=== PATIENT | female | born 1955 | race American Indian/Alaskan Native ===

== ENCOUNTER 2019-10-03 17:10 | Emergency (ER) | payer MEDICAID ==
[~2019-10-03] VITALS: Ht 152.4 cm; Wt 45.0 kg
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
--- NOTE | 2019-10-03 17:41 | NUR ---
assisting RN with pt care, pt is calm and cooperative, gave pt water, cyndi well, no n/v, pt aware UA needed, said she doesn't to live with family anymore "they are too controlling", pt is from [facility]
[2019-10-03 18:17] LABS: BASOPHILS % (AUTO) 0.5 % (0-1); EOSINOPHILS # (AUTO) 0.2 X10'3 (0-0.9); EOSINOPHILS % (AUTO) 3.8 % (0-6); HEMATOCRIT 36.2 % (35.0-45.0); HEMOGLOBIN 11.7 g/dl (12.0-16.0); LYMPHOCYTES % (AUTO) 37.2 % (21-51); MEAN CORPUSCULAR HEMOGLOBIN 29.1 PG (27.0-31.0); MEAN CORPUSCULAR HGB CONC 32.3 g/dL (33.0-36.5); MEAN CORPUSCULAR VOLUME 90.1 FL (78-98); MEAN PLATELET VOLUME 8.2 FL (7.4-10.4); MONOCYTES # (AUTO) 0.5 X10'3 (0-0.9); MONOCYTES % (AUTO) 8.5 % (2-12); NEUTROPHILS # (AUTO) 2.7 X10'3 (1.8-7.7); PLATELET COUNT 266 X10'3 (140-440); RED BLOOD COUNT 4.02 X10'6 (4.20-5.60); RED CELL DISTRIBUTION WIDTH 14.7 % (11.5-14.5); WHITE BLOOD COUNT 5.4 X10'3 (4.5-11.0)
[2019-10-03 18:22] LABS: CLARITY,URINE CLEAR (Clear); COLOR,URINE YELLOW (Yellow); GLUCOSE, URINE NEGATIVE (Neg); KETONES,URINE NEGATIVE (Neg); LEUKOCYTE ESTERASE ,URINE NEGATIVE (Neg); NITRITES, URINE POSITIVE (Neg); OCCULT BLOOD,URINE NEGATIVE (Neg); PH,URINE 5.5 (4.8-8.0); PROTEIN,URINE NEGATIVE (Neg); UROBILINOGEN,URINE 0.2 E.U/dL (0.2-1.0)
[2019-10-03 18:23] LABS: UA COLLECTION TYPE NON-SPECIFIED
[2019-10-03 18:26] LABS: URINE AMPHETAMINE SCREEN NEGATIVE (Neg); URINE BARBITUATE SCREEN NEGATIVE (Neg); URINE BENZODIAZEPINES SCREEN NEGATIVE (Neg); URINE CANNABINOID SCREEN POSITIVE (Neg); URINE COCAINE SCREEN NEGATIVE (Neg); URINE METHADONE SCREEN NEGATIVE (Neg); URINE OPIATE SCREEN NEGATIVE (Neg); URINE PHENCYCLIDINE SCREEN NEGATIVE (Neg)
[2019-10-03 18:26] LABS: ALANINE AMINOTRANSFERASE 66 U/L (12-78); ALBUMIN 3.7 G/DL (3.4-5.0); ALBUMIN/GLOBULIN RATIO 0.7 (1.1-1.5); ALKALINE PHOSPHATASE 144 IU/L (46-116); ANION GAP 9 (8-16); ASPARTATE AMINO TRANSFERASE 42 U/L (10-37); BILIRUBIN,TOTAL 0.4 MG/DL (0.1-1.0); BLOOD UREA NITROGEN 28 MG/DL (7-18); BUN/CREATININE RATIO 31.1 (6.6-38.0); CALCIUM 9.3 MG/DL (8.5-10.1); CHLORIDE 110 MMOL/L (99-107); ETHANOL < 0.010 GM/DL (0.0-0.010); POTASSIUM 4.3 MMOL/L (3.5-5.1); SODIUM 147 MMOL/L (135-145); TOTAL CARBON DIOXIDE 28.1 MMOL/L (24-32); eGFR 64 ML/MIN
[2019-10-03 18:28] LABS: GLUCOSE 88 MG/DL (70-104)
[2019-10-03 18:42] LABS: BACTERIA,URINE 3+ /HPF (Neg); RBC,URINE NONE SEEN /HPF (0-2); SQUAMOUS EPITHELIAL CELL,UR FEW /LPF (FEW)
--- NOTE | 2019-10-03 19:00 | NUR ---
Pt eating dinner, late tray provided.
[2019-10-03] MEDS ORDERED: NO HOME MEDS (19:45)
--- NOTE | 2019-10-03 19:45 | NUR ---
Per pt, she is currently on no home meds. She "used to take" prozac for depression, "something for sleep", and "something for high anxiety". No current meds on external med history.
--- NOTE | 2019-10-03 21:23 | NUR ---
Pt resting in bed, respirations normal, no s/s of distress.
[2019-10-03 22:58] VITALS: BP 113/68
== END 2019-10-03 23:02 | disposition home or self-care (01) ==
LOC: ER 17:10
DX: F31.9 Bipolar disorder, unspecified (principal)
CPT/HCPCS: 36415; 80053; 80305; 80320; 81001; 85025; 99285

== ENCOUNTER 2021-06-05 11:00 | Emergency (ER) | payer MEDICAID ==
[~2021-06-05] VITALS: Ht 149.9 cm; Wt 41.0 kg
[~2021-06-05 11:00] MED LIST: NO HOME MEDS
[2021-06-05 12:16] LABS: EOSINOPHILS # (AUTO) 0.4 X10'3 (0-0.9); MONOCYTES # (AUTO) 0.4 X10'3 (0-0.9)
[2021-06-05 12:17] LABS: BASOPHILS % (AUTO) 0.6 % (0-1); EOSINOPHILS % (AUTO) 6.6 % (0-6); HEMATOCRIT 36.2 % (35.0-45.0); HEMOGLOBIN 12.3 g/dl (12.0-16.0); LYMPHOCYTES # (AUTO) 2.7 X10'3 (1.1-4.8); LYMPHOCYTES % (AUTO) 48.3 % (21-51); MEAN CORPUSCULAR HEMOGLOBIN 30.3 PG (27.0-31.0); MEAN CORPUSCULAR VOLUME 88.9 FL (78-98); MONOCYTES % (AUTO) 7.9 % (2-12); NEUTROPHILS % (AUTO) 36.6 % (42-75); PLATELET COUNT 224 X10'3 (140-440); RED BLOOD COUNT 4.08 X10'6 (4.20-5.60); RED CELL DISTRIBUTION WIDTH 13.9 % (11.5-14.5); WHITE BLOOD COUNT 5.5 X10'3 (4.5-11.0)
[2021-06-05 12:57] LABS: ALANINE AMINOTRANSFERASE 101 U/L (12-78); ALBUMIN 3.8 G/DL (3.4-5.0); ALBUMIN/GLOBULIN RATIO 0.8 (1.1-1.5); ALKALINE PHOSPHATASE 142 IU/L (46-116); ANION GAP 12 (8-16); ASPARTATE AMINO TRANSFERASE 73 U/L (10-37); BILIRUBIN,TOTAL 0.3 MG/DL (0.1-1.0); BLOOD UREA NITROGEN 27 MG/DL (7-18); CALCIUM 8.7 MG/DL (8.5-10.1); CHLORIDE 105 MMOL/L (99-107); POTASSIUM 4.4 MMOL/L (3.5-5.1); SODIUM 140 MMOL/L (135-145); TOTAL CARBON DIOXIDE 23.2 MMOL/L (24-32); TOTAL PROTEIN 8.6 G/DL (6.4-8.2); eGFR 63 ML/MIN
[2021-06-05 13:04] LABS: PLATELET ESTIMATE NORMAL; TOTAL CELLS COUNTED 100
[2021-06-05 13:05] LABS: ELLIPTOCYTES FEW
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
[2021-06-05 13:20] LABS: GLUCOSE 148 MG/DL (70-104)
[2021-06-05 13:21] LABS: ETHANOL < 0.010 GM/DL (0.0-0.010)
--- NOTE | 2021-06-05 13:33 | NUR ---
PT RESTING IN BED, HAS NO REQUESTS, NO COMPLAINTS AT THIS TIME.
[2021-06-05 14:31] LABS: CLARITY,URINE CLOUDY (Clear); COLOR,URINE YELLOW (Yellow); GLUCOSE, URINE NEGATIVE (Neg); KETONES,URINE NEGATIVE (Neg); LEUKOCYTE ESTERASE ,URINE MODERATE (Neg); NITRITES, URINE NEGATIVE (Neg); OCCULT BLOOD,URINE NEGATIVE (Neg); PROTEIN,URINE NEGATIVE (Neg); UROBILINOGEN,URINE 0.2 E.U/dL (0.2-1.0)
[2021-06-05 14:33] LABS: UA COLLECTION TYPE CLN CATCH MIDSTREAM
[2021-06-05 14:36] LABS: MUCUS STRANDS MODERATE /LPF (Neg); SQUAMOUS EPITHELIAL CELL,UR MANY /LPF (FEW)
[2021-06-05 14:37] LABS: HYALINE CASTS 0-3 /LPF (NEGATIVE); TRANSITIONAL EPI CELLS,URINE FEW /HPF
[2021-06-05 14:38] LABS: BACTERIA,URINE 1+ /HPF (Neg)
[2021-06-05 14:39] LABS: RBC,URINE 0-2 /HPF (0-2)
[2021-06-05 14:41] LABS: URINE AMPHETAMINE SCREEN POSITIVE (Neg); URINE BARBITUATE SCREEN NEGATIVE (Neg); URINE BENZODIAZEPINES SCREEN NEGATIVE (Neg); URINE CANNABINOID SCREEN POSITIVE (Neg); URINE COCAINE SCREEN NEGATIVE (Neg); URINE METHADONE SCREEN NEGATIVE (Neg); URINE OPIATE SCREEN NEGATIVE (Neg); URINE PHENCYCLIDINE SCREEN NEGATIVE (Neg)
[2021-06-05] MEDS ORDERED: TIZA-205 PO (15:41)
--- NOTE | 2021-06-05 15:46 | NUR ---
PT RESTING W/O COMPLAINTS
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
[2021-06-05] MEDS ORDERED: acetaminophen 325mg tablet PO ONE ×2 (17:20→17:25)
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
--- NOTE | 2021-06-05 20:00 | NUR ---
patient resting in bed. respirations unlabored. laying on right side. no complaints of shoulder pain. will continue to monitor.
--- NOTE | 2021-06-05 21:19 | NUR ---
patient resting in bed. no complaints
--- NOTE | 2021-06-05 23:11 | NUR ---
patient sleeping. no complaints
--- NOTE | 2021-06-06 01:27 | NUR ---
Patient resting in bed laying on back. no complaints or discomfort. Will continue to monitor.
--- NOTE | 2021-06-06 03:23 | NUR ---
patient resting with eyes closed. will continue to monitor.
--- NOTE | 2021-06-06 05:02 | NUR ---
pt up to the bathroom. back to bed after drinking a cup of water. resting comfortably. will continue to monitor.
[2021-06-06 08:40] VITALS: BP 127/64
[2021-06-06] MEDS ORDERED: LORazepam 1 MG tablet PO ONE (09:10)
== END 2021-06-06 16:29 | disposition home or self-care (01) ==
LOC: ER 11:01
DX: R44.1 Visual hallucinations (principal); Z20.822 Contact with and (suspected) exposure to COVID-19; F41.9 Anxiety disorder, unspecified; F31.9 Bipolar disorder, unspecified; Z59.00 Homelessness unspecified
CPT/HCPCS: 36415; 80053; 80305; 80320; 81001; 84443; 85007; 85025; 87635; 99284; C9803

== ENCOUNTER 2021-06-24 15:30 | Emergency (ER) | payer MEDICAID ==
[~2021-06-24] VITALS: Ht 152.4 cm; Wt 45.5 kg
[~2021-06-24 15:30] MED LIST changes: +TIZA-205 PO
[2021-06-24 15:40] VITALS: BP 122/69
== END 2021-06-24 19:00 | disposition home or self-care (01) ==
LOC: ER 15:31
DX: Z02.89 Encounter for other administrative examinations (principal); T68.XXXA Hypothermia, initial encounter; F31.9 Bipolar disorder, unspecified; Z79.899 Other long term (current) drug therapy; X58.XXXA Exposure to other specified factors, initial encounter; Y93.89 Activity, other specified; Y92.89 Other specified places as the place of occurrence of the external cause; Y99.8 Other external cause status
CPT/HCPCS: 99281